=== PATIENT | male | born 1985 | race Caucasian/White ===

== ENCOUNTER → 2024-11-27 | Outpatient (REF) | payer OTHER ==
[~2024-11-27] MED LIST: AMLODIPINE BESYL5 MG PO; LOSARTAN POTAS100 MG PO
== END ==
LOC: DX 09:04
PROVIDERS: ATTEND Surgery
DX: K57.92 Diverticulitis of intestine, part unspecified, without perforation or abscess without bleeding (principal)
CPT/HCPCS: 74280